=== PATIENT | male | born 1970 | race Two or more races ===

== ENCOUNTER 2017-08-31 18:25 | Emergency (ER) | payer OTHER, MEDICAID ==
[~2017-08-31] VITALS: Ht 175.3 cm; Wt 108.9 kg
[~2017-08-31 18:25] MED LIST: NAPR-591
[2017-08-31 19:15] VITALS: BP 166/98
== END 2017-08-31 19:34 | disposition home or self-care (01) ==
LOC: ER 18:25
DX: B02.9 Zoster without complications (principal); I10 Essential (primary) hypertension

== ENCOUNTER 2019-01-18 01:05 | Emergency (ER) | payer MEDICAID, OTHER ==
[~2019-01-18] VITALS: Ht 177.8 cm; Wt 102.1 kg
[2019-01-18] MEDS ORDERED: methylPREDNISolone SOD SUCC 125 MG/2 ML VL IM ONE (02:45)
[2019-01-18] MEDS ORDERED: KETOROLAC TROMETH 60MG/2ML VIAL IM ONE (02:45)
[2019-01-18 03:16] VITALS: BP 115/80
== END 2019-01-18 03:18 | disposition home or self-care (01) ==
LOC: ER 01:05
DX: S33.5XXA Sprain of ligaments of lumbar spine, initial encounter (principal); S30.0XXA Contusion of lower back and pelvis, initial encounter; M62.830 Muscle spasm of back; W20.8XXA Other cause of strike by thrown, projected or falling object, initial encounter; Y93.89 Activity, other specified; Y92.89 Other specified places as the place of occurrence of the external cause; Y99.8 Other external cause status
CPT/HCPCS: 72100; 96372; 99283; J1885; J2930